=== PATIENT | male | born 1960 | race Caucasian/White ===

== ENCOUNTER 2020-11-23 13:26 | Observation (INO) ==
[2020-11-23] MEDS ORDERED: Aspirin 81 MG TAB.CHEW PO STA (14:19)
[2020-11-23] MEDS ORDERED: Naloxone 0.4 MG/ML INJ IVP PRN (15:38)
[2020-11-23] MEDS ORDERED: Perflutren Lipid Microsphere 1.3 ML in 0.9 % Sodium Chloride 8.7 ML IVP PRN (15:40)
[2020-11-23] MEDS ORDERED: D5% in Water 1,000 ML IVC PRN (15:43)
[2020-11-23] MEDS ORDERED: Dextrose Gel 15 GM/37.5 ML TUBE PO PRN ×2 (15:43)
[2020-11-23] MEDS ORDERED: *HR* Dextrose 50 % in Water (Vial) 50 ML VIAL IVP PRN (15:43)
[2020-11-23] MEDS ORDERED: Acetaminophen 325 MG TABLET PO PRN (16:07)
[2020-11-23] MEDS ORDERED: Melatonin 3 MG TABLET PO PRN (16:09)
[2020-11-23 16:15] LABS: BUN/Creatinine Ratio 24 (6-26); Blood Urea Nitrogen 17 mg/dL (6-20); Calcium 9.3 mg/dL (8.6-10.3); Carbon Dioxide 26 mEq/L (23-29); Chloride 102 mEq/L (98-107); Glucose 120 mg/dL (70-105); Osmolality,Calculated 285 (280-300); Potassium 4.3 mEq/L (3.5-5.1); Sodium 136 mEq/L (136-145); eGFR For African Americans > 60 (> 60); eGFR For Non-African Americans > 60 (> 60)
[2020-11-23] MEDS ORDERED: *HR* FentaNYL PATCH 75 MCG PATCH TD SCH (16:15)
[2020-11-23] MEDS: Insulin LISPRO 300 UNITS/3 ML VIAL SUBQ SCH (16:37)
[2020-11-23] MEDS: Albuterol 2.5 MG/3 ML NEBULIZER IH PRN (17:09)
[2020-11-23] MEDS: *HR* OxyCODONE ER (12 HR) 10 MG TABLET PO SCH ×2 (19:18→21:25)
[2020-11-23] MEDS: Budesonide/Formoterol 160/4.5 1 PUFF INH IH SCH (20:37)
[2020-11-23] MEDS ORDERED: rOPINIRole 1 MG TABLET PO SCH (21:00)
[2020-11-23] MEDS ORDERED: traZODone 50 MG TABLET PO SCH (21:00)
[2020-11-23] MEDS: Famotidine 20 MG TABLET PO SCH (21:23)
[2020-11-23] MEDS: Gabapentin 300 MG CAPSULE PO SCH (21:23)
[2020-11-24] MEDS: Albuterol 2.5 MG/3 ML NEBULIZER IH PRN (07:32)
[2020-11-24] MEDS: Budesonide/Formoterol 160/4.5 1 PUFF INH IH SCH (07:33)
[2020-11-24] MEDS: Gabapentin 300 MG CAPSULE PO SCH (07:43)
[2020-11-24] MEDS: *HR* OxyCODONE ER (12 HR) 10 MG TABLET PO SCH ×2 (07:43→12:56)
[2020-11-24] MEDS: Famotidine 20 MG TABLET PO SCH (07:44)
[2020-11-24] MEDS: Insulin LISPRO 300 UNITS/3 ML VIAL SUBQ SCH ×2 (07:50→11:46)
[2020-11-24] MEDS ORDERED: Magnesium Oxide 400 MG TABLET PO SCH (09:00)
[2020-11-24] MEDS ORDERED: Furosemide 20 MG TABLET PO SCH (09:00)
[2020-11-24] MEDS ORDERED: Aspirin 81 MG TAB.CHEW PO SCH (09:00)
[2020-11-24] MEDS ORDERED: Finasteride 5 MG TABLET PO SCH (09:00)
[2020-11-24 09:08] LABS: Hematocrit 42.7 % (37.5-50.1); Hemoglobin 12.9 g/dL (12.9-16.9); Mean Corpuscular HGB Conc 30.2 g/dL (31.6-35.5); Mean Corpuscular Hemoglobin 22.6 pg (28.0-33.3); Mean Corpuscular Volume 74.9 fL (83.0-100.0); Platelet Count 210 K/mcL (140-400); Red Cell Distribution Width 14.8 % (11.5-14.5); White Blood Count 7.1 K/mcL (4.3-11.1)
[2020-11-24 09:28] LABS: INR 1.1; Prothrombin Time 12.2 Seconds (9.4-12.1)
[2020-11-24 09:37] LABS: Chol/HDL Ratio 3.6 (0-4.9)
[2020-11-24 11:06] LABS: Estimated Average Glucose 157 mg/dl; Hemoglobin A1C 7.1 %
[2020-11-24 11:44] VITALS: BP 132/79
== END 2020-11-24 15:02 | disposition home or self-care (01) ==
LOC: 3BNU 13:26 → EMEROOARM 13:26 → SUATTDRO 15:23 → 3BNU 15:46
PROVIDERS: ADMIT Family Medicine; ATTEND Nurse Practitioner